=== PATIENT | male | born 1985 | race African-American/Black ===

== ENCOUNTER 2017-03-29 10:04 | Emergency (ER) | payer SELFPAY | END 2017-03-29 10:15 | disposition left against medical advice (07) | LOC: UCEAST 10:04 | DX: R10.9 Unspecified abdominal pain (principal); Z53.21 Procedure and treatment not carried out due to patient leaving prior to being seen by health care provider ==

== ENCOUNTER 2017-03-29 10:52 | Emergency (ER) | payer SELFPAY ==
--- NOTE | 2017-03-29 12:43 | UC ---
Jan Canales Angela, scribed for Milvia Loredo MD on 03/29/17 at 1214 . Abdominal Pain Male HPI - HPI Summary HPI Summary: This pt is a 31 y/o male accompanied by his cousin's presenting to [facility] c/ o intermittent non-radiating right-sided abd pain x1.5 weeks. Pt additionally c/ o diarrhea (that began 6 days ago) and nausea. He denies vomiting. He reports 3 episodes of diarrhea a day, which is described as watery but denies bloody stools. He states that he eats a lot of mayonnaise and barbecue sauce with everything. He notes that he ate chicken with barbecue sauce prior to the onset of his symptoms and he believes the chicken was undercooked. Today, pt reports he had a bowel movement today, which he describes it has been the most normal bowel movement he has had since of diarrhea. Pt denies fever, body aches, losing weight, heart burn, urinary problems. He notes drinking a lot of coffee, 6 cups a day. He states taking ibuprofen with no relief. Pt has had normal appetite. Pt has missed work on Friday and due to symptoms. Pt has had diarrhea before, last time was 1-2 months ago. Pt smokes marijuana and tobacco, but denies alcohol use. He tried eating plain flour to relieve the loose stools without success--home remedy from his grandmother. He has recently moved from [place] 3 months ago. NKDA. - History of Current Complaint Chief Complaint: UCAbdominalPain Stated Complaint: ABDOMINAL PAIN Time Seen by Provider: 03/29/17 12:11 Hx Obtained From: Patient Onset/Duration: Sudden Onset, Lasting Days - 10 Location: Discrete At: RUQ Radiates: No Character: Cramping Aggravating Factor(s): Food Alleviating Factor(s): Nothing Associated Signs And Symptoms: Positive: Diarrhea - Allergies/Home Medications Allergies/Adverse Reactions: Allergies Allergy/AdvReac Type Severity Reaction Status Date / Time No Known Allergies Allergy Verified 03/29/17 11:04 PMH/Surg Hx/FS Hx/Imm Hx Previously Healthy: Yes Other Endocrine History: DENIES: diabetes Other Cardiovascular History: DENIES: HTN - Surgical History Surgical History: None - Family History Known Family History: Positive: Diabetes - father, Other - Both parents are living. No FHx of colitis or Crohn's disease. - Social History Occupation: Employed Full-time - [employer] Lives: With Family - cousin and cousin's Alcohol Use: None Substance Use Type: Marijuana Smoking Status (MU): Heavy Every Day Tobacco Smoker Review of Systems Constitutional: Negative - body aches, weight loss Skin: Negative Eyes: Negative ENT: Negative Respiratory: Negative Cardiovascular: Negative Gastrointestinal: Abdominal Pain, Diarrhea, Nausea, Other - NEG: vomiting, bloody stools, heart burn Genitourinary: Negative Motor: Negative Neurovascular: Negative Musculoskeletal: Negative Neurological: Negative Psychological: Negative Is Patient Immunocompromised?: No All Other Systems Reviewed And Are Negative: Yes Physical Exam Triage Information Reviewed: Yes Appearance: Well-Appearing, No Pain Distress, Other: - well-hydrated with stable vital signs. Vital Signs: Initial Vital Signs Temp 97.9 F 03/29/17 11:04 Pulse 82 03/29/17 11:04 Resp 16 03/29/17 11:04 BP 117/59 03/29/17 11:04 Pulse Ox 99 03/29/17 11:04 Vital Signs Reviewed: Yes Eyes: Positive: Conjunctiva Clear ENT: Positive: Pharynx normal, TMs normal Neck exam: Normal Neck: Positive: Supple, Nontender, No Lymphadenopathy Respiratory: Positive: Lungs clear, Normal breath sounds Cardiovascular: Positive: RRR, No Murmur Abdomen Description: Positive: Nontender, No Organomegaly, Soft Bowel Sounds: Positive: Present Musculoskeletal Exam: Normal Neurological Exam: Normal Psychological Exam: Other - apprehensive about doctors and medical care. Skin: Positive: Other - scars left upper chest Abd Pain Male Course/Dx - Course Course Of Treatment: Pt is a 31 y/o male who presents with intermittent non- radiating right-sided abd pain x1.5 weeks and diarrhea x6 days. Pt medications reviewed this visit. Pt is advised to cut down on coffee. - Differential Dx/Clinical Impression Differential Diagnosis/HQI/PQRI: Appendicitis, Other - gastroenteritis. Provider Diagnoses: acute diarrhea, likely viral Discharge - Discharge Plan Condition: Stable Disposition: HOME Patient Education Materials: Acute Diarrhea (ED), Nutrition Tips for Relief of Diarrhea (ED) Forms: *Work Release Referrals: No Primary Care Phys,NOPCP [Primary Care Provider] - Additional Instructions: I suggest less coffee, less barbecue sauce, no fried or fatty foods until the diarrhea resolves. This illness is improving, and no further testing is needed. You will stay off work until the diarrhea subsides due your work. I expect that you will be able to return on Friday. Eating yogurt sometimes helps to decrease diarrhea. Ensure a high intake of fluids. The documentation as recorded by the Jan florian Angela accurately reflects the service I personally performed and the decisions made by me, Milvia Loredo MD.
== END 2017-03-29 12:43 | disposition home or self-care (01) ==
LOC: UCEAST 10:52
DX: R10.9 Unspecified abdominal pain (principal); R19.7 Diarrhea, unspecified
CPT/HCPCS: 99201; G0463

== ENCOUNTER 2017-10-28 09:05 | Emergency (ER) | payer SELFPAY ==
[2017-10-28] MEDS ORDERED: NS 0.9% 1000 ML* 1,000 ML IV ONE (09:33)
[2017-10-28 10:06] LABS: ABS Basophils 0.1 10^3/ul (0-0.2); ABS Eosinophils 0 10^3/ul (0-0.6); ABS Lymphocytes 1.4 10^3/ul (1.0-4.8); ABS Monocytes 0.3 10^3/ul (0-0.8); ABS Nucleated RBC 0 10^3/ul; Eosinophil % 0.4 % (0-6); Hematocrit 41 % (42-52); Hemoglobin 13.7 g/dl (14.0-18.0); Mean Corpuscular HGB Conc 33 g/dl (31-36); Mean Corpuscular Hemoglobin 28 pg (27-31); Mean Corpuscular Volume 84 fL (80-94); Mean Platelet Volume 8.1 um3 (7.4-10.4); Nucleated Red Blood Cells % 0.1; Platelet Count 199 10^3/ul (150-450); Red Blood Count 4.89 10^6/ul (4.0-5.4); Red Cell Distribution Width 14 % (10.5-15); White Blood Count 7.8 10^3/ul (3.5-10.8)
[2017-10-28 10:25] LABS: EGFR Non-African American 93.6 (>60)
[2017-10-28 10:41] VITALS: BP 125/73
--- NOTE | 2017-10-28 11:24 | ED ---
Monica Canales Gabriel, scribed for Malik Cain MD on 10/28/17 at 0938 . Syncope/Near Syncope - HPI Summary HPI Summary: This patient is a 31 year old M presenting [facility] accompanied by his family s/ p syncopal episode that occurred [employer]. Pt states he woke up had two cups of coffee and then walked to work. During his walk he began to feel SOB, light headed, dizzy, and SOB. Shortly after these symptoms began he had a LOC that was unwitnessed. He did not eat this morning and believe he hasnt been drinking enough water. The patient rates the pain 2/10 in severity. Patient reports CP and eye socket pain. Patient denies RM, vision changes, cough, recent illness, and palpitations. Pt is a daily smoker. - History Of Current Complaint Chief Complaint: EDSyncope Time Seen by Provider: 10/28/17 09:14 Hx Obtained From: Patient Onset/Duration: Sudden Onset, Resolved Timing: Intermittent Episode Lasting Context: Unwitnessed Activity At Onset: Other - walking Associated Signs And Symptoms: Chest Pain, Lightheadedness, Shortness Of Breath - Allergies/Home Medications Allergies/Adverse Reactions: Allergies Allergy/AdvReac Type Severity Reaction Status Date / Time No Known Allergies Allergy Verified 10/28/17 10:03 PMH/Surg Hx/FS Hx/Imm Hx Endocrine/Hematology History: Denies: Hx Diabetes, Hx Systemic Lupus Erythematosus, Hx Sickle Cell Disease , Hx Thyroid Disease Cardiovascular History: Denies: Hx Hypertension, Hx Myocardial Infarction Respiratory History: Denies: Hx Cystic Fibrosis, Hx Lung Cancer, Hx Pneumonia, Hx Pulmonary Edema History: Denies: Hx Benign Prostatic Hyperplasia, Hx Chronic Renal Failure Psychiatric History: Denies: Hx Eating Disorder Infectious Disease History: No Infectious Disease History: Denies: Hx Clostridium Difficile, Hx Hepatitis, Hx Human Immunodeficiency Virus (HIV), Hx of Known/Suspected MRSA, Hx Shingles, Hx Tuberculosis, Hx Known/ Suspected VRE, Hx Known/Suspected VRSA, History Other Infectious Disease, Traveled Outside the [place] in Last 30 Days - Family History Known Family History: Positive: Diabetes - father, Other - Both parents are living. No FHx of colitis or Crohn's disease. - Social History Occupation: Employed Full-time Lives: With Family Alcohol Use: None Substance Use Type: Reports: Marijuana Smoking Status (MU): Heavy Every Day Tobacco Smoker Review of Systems Negative: Blurred Vision Positive: Other - eye pain Positive: Chest Pain. Negative: Palpitations Positive: Shortness Of Breath. Negative: Cough Neurological: Other - dizzy. light headed Positive: Syncope. Negative: Headache All Other Systems Reviewed And Are Negative: Yes Physical Exam - Summary Physical Exam Summary: Appearance: Well appearing, no pain distress Skin: warm, dry, reflects adequate perfusion Head/face: normal Eyes: EOMI, RANDY ENT: normal Neck: supple, non-tender Respiratory: CTA, breath sounds present Cardiovascular: RRR, pulses symmetrical Abdomen: non-tender, soft Bowel Sounds: present Musculoskeletal: normal, strength/ROM intact Neuro: normal, sensory motor intact, A&Ox3 Triage Information Reviewed: Yes Vital Signs On Initial Exam: Initial Vitals Temp Pulse Resp BP Pulse Ox 97.9 F 71 16 103/81 98 10/28/17 09:09 10/28/17 09:09 10/28/17 09:09 10/28/17 09:09 10/28/17 09:09 Vital Signs Reviewed: Yes Diagnostics - Vital Signs Vital Signs Temp Pulse Resp BP Pulse Ox 10/28/17 09:09 97.9 F 71 16 103/81 98 - Laboratory Lab Results: Lab Results 10/28/17 10/28/17 10/28/17 Range/Units 09:38 09:57 09:57 WBC 7.8 (3.5-10.8) 10^3/ul RBC 4.89 (4.0-5.4) 10^6/ul Hgb 13.7 L (14.0-18.0) g/dl Hct 41 L (42-52) % MCV 84 (80-94) fL MCH 28 (27-31) pg MCHC 33 (31-36) g/dl RDW 14 (10.5-15) % Plt Count 199 (150-450) 10^3/ul MPV 8.1 (7.4-10.4) um3 Neut % (Auto) 76.4 (38-83) % Lymph % (Auto) 18.0 L (25-47) % Hutchinson % (Auto) 4.5 (0-7) % Eos % (Auto) 0.4 (0-6) % Baso % (Auto) 0.7 (0-2) % Absolute Neuts (auto) 6.0 (1.5-7.7) 10^3/ul Absolute Lymphs (auto) 1.4 (1.0-4.8) 10^3/ul Absolute Monos (auto) 0.3 (0-0.8) 10^3/ul Absolute Eos (auto) 0 (0-0.6) 10^3/ul Absolute Basos (auto) 0.1 (0-0.2) 10^3/ul Absolute Nucleated RBC 0 10^3/ul Nucleated RBC % 0.1 Sodium 137 L (139-145) mmol/L Potassium 3.9 (3.5-5.0) mmol/L Chloride 102 (101-111) mmol/L Carbon Dioxide 28 (22-32) mmol/L Anion Gap 7 (2-11) mmol/L BUN 14 (6-24) mg/dL Creatinine 0.94 (0.67-1.17) mg/dL Est GFR ( Amer) 120.4 (>60) Est GFR (Non-Af Amer) 93.6 (>60) BUN/Creatinine Ratio 14.9 (8-20) Glucose 99 (70-100) mg/dL POC Glucose (mg/dL) 104 H (70-100) mg/dL Calcium 9.2 (8.6-10.3) mg/dL Result Diagrams: 10/28/17 09:57 10/28/17 09:57 Lab Statement: Any lab studies that have been ordered have been reviewed, and results considered in the medical decision making process. - EKG 0945 Cardiac Rate: NL EKG Rhythm: Sinus Rhythm - at [address] Segment: Normal EKG Interpretation: nml intervals and axis Course/Dx Course Of Treatment: Patient with prodrome of fainting followed by a syncopal episode and quick recovery to normal consciousness. No injury or chest evidence of trauma found. No history of seizure. No postictal phase. Vitals here are normal. Laboratories including blood sugar electrolytes etc. as well as blood counts are all normal. Patient was given IV fluids and feeling back to normal. He he discharged in good condition. - Diagnoses Differential Diagnosis/HQI/PQRI: Positive: Other - Vasovagal syncope, orthostatic syncope, seizure, anemia, hypoglycemia, TIA Provider Diagnoses: Vasovagal syncope Discharge - Sign-Out/Discharge Documenting (check all that apply): Discharge/Admit/Transfer - Discharge Plan Condition: Good Disposition: HOME Patient Education Materials: Syncope (ED) Forms: *Work Release Referrals: [facility] REFERRAL [Outside] Additional Instructions: Stay well-hydrated. Eat regularly. If you feel as though he may pass out sit or lie down immediately. Return if worse, new symptoms or other concerns as discussed. - Billing Disposition and Condition Condition: GOOD Disposition: HOME The documentation as recorded by the Monica florian Gabriel accurately reflects the service I personally performed and the decisions made by me, Malik Cain MD.
== END 2017-10-28 10:48 | disposition home or self-care (01) ==
LOC: ED 09:05
DX: R55 Syncope and collapse (principal); R07.89 Other chest pain; R06.02 Shortness of breath; R42 Dizziness and giddiness; F17.200 Nicotine dependence, unspecified, uncomplicated
CPT/HCPCS: 36415; 80048; 85025; 93005; 96360; 99283

== ENCOUNTER 2021-06-04 04:59 | Inpatient (IN) ==
[2021-06-04 05:46] LABS: Urine Appearance Clear; Urine Bilirubin Negative (Negative); Urine Blood Negative (Negative); Urine Color Yellow; Urine Glucose Negative (Negative); Urine Ketones 1+ (Negative); Urine Nitrite Negative (Negative); Urine Protein 1+(30 mg/dL) (Negative); Urine Specific Gravity 1.029 (1.002-1.030); Urine Urobilinogen Negative (Negative)
[2021-06-04 05:50] LABS: Urine Bacteria Absent (Absent); Urine Red Blood Cell 1+(3-5/hpf) (Absent); Urine White Blood Cell Trace(0-5/hpf) (Absent)
[2021-06-04 05:59] LABS: Urine Benzodiazepine Screen None Detected (None Detect); Urine Cannabinoids Screen None Detected (None Detect); Urine Opiates Screen None Detected (None Detect)
[2021-06-04 06:12] LABS: ABS Basophils 0.1 10^3/ul (0-0.2); ABS Lymphocytes 1.6 10^3/ul (1.0-4.8); ABS Monocytes 0.6 10^3/ul (0-0.8); ABS Neutrophils 9.2 10^3/ul (1.5-7.7); Eosinophil % 0.4 %; Hematocrit 42 % (42-52); Hemoglobin 14.1 g/dL (14.0-18.0); Lymphocyte % 13.7 %; Mean Corpuscular HGB Conc 33 g/dL (31-36); Mean Corpuscular Hemoglobin 29 pg (27-31); Mean Corpuscular Volume 86 fL (80-94); Mean Platelet Volume 8.6 fL (7.4-10.4); Nucleated Red Blood Cells % 0.1; Platelet Count 228 10^3/uL (150-450); Red Blood Count 4.94 10^6 /uL (4.18-5.48); Red Cell Distribution Width 14 % (10-15); White Blood Count 11.5 10^3/uL (3.5-10.8)
[2021-06-04 06:32] LABS: ALT 13 U/L (7-52); AST 20 U/L (13-39); Albumin 4.5 g/dL (3.2-5.2); Albumin/Globulin Ratio 1.4 (1-3); Alkaline Phosphatase 53 U/L (35-149); Anion Gap 8 mmol/L (2-11); Blood Urea Nitrogen 19 mg/dL (6-24); CO2 Carbon Dioxide 27 mmol/L (22-32); Calcium 9.9 mg/dL (8.6-10.3); Chloride 103 mmol/L (101-111); Globulin 3.2 g/dL (2-4); Glucose 96 mg/dL (70-100); Potassium 3.8 mmol/L (3.5-5.0); Sodium 138 mmol/L (135-145); Total Protein 7.7 g/dL (6.4-8.9); eGFR CKD-EPI 103.1 (>60)
[2021-06-04 06:34] LABS: Acetaminophen < 15 mcg/mL; Alcohol, S < 13 mg/dL (<13); Salicylate < 2.50 mg/dL (<30)
[2021-06-04 06:48] LABS: TSH Ultra Thyroid Stim Horm 0.81 mcIU/mL (0.34-5.60)
[2021-06-04] MEDS ORDERED: Al Hydrox/Mg Hydrox/Simet LIQ 30 ML UDC PO PRN (10:12)
[2021-06-04 12:47] VITALS: BP 123/71
== END 2021-06-05 13:13 | DRG 755 ==
LOC: ED 04:59 → BSU 10:12 → ED 12:34
PROVIDERS: ADMIT Psychiatry & Neurology Psychiatry; ATTEND Psychiatry & Neurology Psychiatry